=== PATIENT | male | born 1975 | race Caucasian/White ===

== ENCOUNTER 2019-06-04 17:40 | Emergency (ER) | payer BC ==
[2019-06-04] MEDS ORDERED: Lidocaine 1% PF 2 ML SDV INJECT ONE ×2 (17:45)
--- NOTE | 2019-06-04 18:01 | EDM.PDOC ---
ED HPI GENERAL MEDICAL PROBLEM - General Chief Complaint: Laceration Time Seen by Provider: 06/04/19 18:00 Source of Information: Reports: Patient History Limitations: Reports: No Limitations - History of Present Illness INITIAL COMMENTS - FREE TEXT/NARRATIVE: This patient presents to the ED for evaluation of a finger laceration. He was doing a taxidermy project on a deer head when he cut his left 2nd digit with a knife. He denies other injuries or concerns. Onset: Today ED ROS GENERAL - Review of Systems Review Of Systems: See Below Constitutional: Reports: No Symptoms HEENT: Reports: No Symptoms Respiratory: Reports: No Symptoms Cardiovascular: Reports: No Symptoms GI/Abdominal: Reports: No Symptoms Musculoskeletal: Reports: No Symptoms Skin: Reports: Lesions Neurological: Reports: No Symptoms ED EXAM, SKIN/RASH Exam: See Below Exam Limited By: No Limitations General Appearance: Alert, WD/WN, No Apparent Distress Eye Exam: Bilateral Eye: PERRL Ears: Normal External Exam Nose: Normal Inspection Throat/Mouth: Normal Inspection Head: Atraumatic, Normocephalic Neck: Normal Inspection, Full Range of Motion Respiratory/Chest: No Respiratory Distress Extremities: Normal Inspection, Normal Range of Motion, Normal Capillary Refill Neurological: Alert, Oriented Skin: Warm, Dry, Other Location, Skin: Other (3 cm flap laceration distal to PIP joint left 2nd digit) ED SKIN PROCEDURES - Laceration/Wound Repair Left Medial Digit - 2nd (Index) Appearance: Superficial, Mildly Contaminated Distal NVT: Neuro & Vascular Intact, No Tendon Injury Anesthetic Type: Local Local Anesthesia - Lidocaine (Xylocaine): 1% Plain Local Anesthetic Volume: 4cc Skin Prep: Chlorhexidine (Hibiciens), Saline Saline Irrigation (cc's): 500 Exploration/Debridement/Repair: Wound Explored, In a Bloodless Field, Explored to Base, No Foreign Material Found Closed with: Sutures Lac/Wound length In cm: 3 Suture Size: 4-0 # of Sutures: 6 Suture Type: Nylon Sterile Dressing Applied: Other (tolerated procedure well.) Tetanus Status Addressed: Yes Complications: No - Splinting Left 2nd Digit Pre-Procedure NV Status: Normal Post-Procedure NV Status: Normal Splint Material: Metal Applied & Form Fitted By: Provider, Nurse Provider Post-Splint Application NV Check: NV Status Normal Complications: No Course - Vital Signs Last Recorded V/S: Last Vital Signs Temp 36.6 C 06/04/19 18:20 Pulse 73 06/04/19 18:20 Resp 16 06/04/19 18:20 BP 114/55 L 06/04/19 18:20 Pulse Ox 97 06/04/19 18:20 - Orders/Labs/Meds Orders: Active Orders 24 hr Category Date Time Status Vaccines to be Administered [RC] PER UNIT ROUTINE Care 06/04/19 18:10 Active Meds: Medications Discontinued Medications Generic Name Dose Route Start Last Admin Trade Name Afsaneh PRN Reason Stop Dose Admin Diphtheria/Tetanus/Acell Pertussis 0.5 ml 06/04/19 18:09 06/04/19 18:36 Boostrix IM 06/04/19 18:10 0.5 ml .ONCE ONE Administration Departure - Departure Time of Disposition: 18:45 Disposition: Home, Self-Care 01 Condition: Good Clinical Impression: Laceration - Discharge Information *PRESCRIPTION DRUG MONITORING PROGRAM REVIEWED*: No Instructions: VIS, Tetanus, Diphtheria (Td); Tetanus, Diphtheria, Pertussis ( Tdap) - CDC, VIS, Diphtheria, Tetanus, and Pertussis (DTaP) - CDC (11/22/2006), Stitches, Dilip, or Adhesive Wound Closure, Auve-uv-Creq Forms: ED Department Discharge Additional Instructions: Return to clinic in 10 days to have the sutures removed. Recheck sooner for any signs of infection including increased redness, swelling, or discharge from wound. Care Plan Goals: Contact clinic if you notice any redness, pain gets worse, bad odors, or increased drainage. Apply antibiotic ointment once a day and then recover with dressing. The site of your vaccine may be tender and you may have some pain in that arm for a few days. Contact hospital with any questions [phone]. - My Orders Last 24 Hours: My Active Orders 06/04/19 18:10 Vaccines to be Administered [RC] PER UNIT ROUTINE - Assessment/Plan Last 24 Hours: My Active Orders 06/04/19 18:10 Vaccines to be Administered [RC] PER UNIT ROUTINE
[2019-06-04] MEDS ORDERED: Diphtheria,Pertussis(Acell),Tetanus Vaccine 0.5 ML SDV inactive IM ONE (18:09)
[2019-06-04] MEDS ORDERED: Mupirocin Oint 22 GM Tube TOP ONE (18:45)
[2019-06-05] MEDS ORDERED: Lidocaine 1% PF 2 ML SDV INJECT ONE (06:56)
== END 2019-06-04 18:55 | disposition home or self-care (01) ==
LOC: LB.ED 17:40
DX: S61.211A Laceration without foreign body of left index finger without damage to nail, initial encounter (principal); Z23 Encounter for immunization; W26.0XXA Contact with knife, initial encounter; Y93.89 Activity, other specified
CPT/HCPCS: 12002; 90471; 90715; 99282; J2001